=== PATIENT | female | born 1960 | race Caucasian/White ===

== ENCOUNTER 2017-03-24 16:54 | Inpatient (IN) ==
[2017-03-24] MEDS ORDERED: ONDANSETRON 4 MG/2 ML INJECTION IVP PRN (17:06)
[2017-03-24] MEDS ORDERED: BISACODYL 10 MG SUPPOSITORY RECTALLY PRN (17:06)
[2017-03-24] MEDS ORDERED: POLYETHYL GLYCOL 3350 17gm PACKET PO PRN (17:06)
[2017-03-24] MEDS ORDERED: ACETAMINOPHEN 325 MG TABLET PO PRN (17:07)
[2017-03-24] MEDS ORDERED: NS 1,000 ML IV ONE (17:21)
--- OUTSIDE RECORDS SUMMARY | 2017-03-24 17:23 | External Medical Summary | Encounter Summary ---
:1960 Author Organization [facility] Address [address] [place] [address] Phone Care Team Providers Name Role Phone Unavailable Primary Care Provider Unavailable Reason for Visit Reason Comments Medication Refill Encounter Details Date Type Department Care Team Description 03/23/2017 Refill [facility], Cutaneous T-cell [facility] - MD Zuleima lymphoma involving lymph [facility] Exam [address] [facility] nodes of head (HCC) [address] [facility] [place] [address] [place] [address] [phone] Social History Tobacco Use Types Packs/Day Years Used Date Current Every Day Smoker Smokeless Tobacco: Never Used Sex Assigned at Date Recorded Not on file as of this encounter Plan of Treatment Not on fileas of this encounter Visit Diagnoses 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
--- OUTSIDE RECORDS SUMMARY | 2017-03-24 17:23 | External Medical Summary | Continuity of Care Document ---
:1960 Author Organization [facility] Care Team Providers Name Role Phone [employer] Unavailable Unavailable Encounters Location Location Encounter Encounter Reason Attending ADM DC Status Source Details Type Number For Provider Date Date Visit O Active [facility] Family History Value Date Source Advance Directives Order Name Results Value Date Source
--- OUTSIDE RECORDS SUMMARY | 2017-03-24 17:23 | External Medical Summary | Encounter Summary ---
:1960 Author Organization [facility] Address [address] [place] [address] Phone Care Team Providers Name Role Phone Unavailable Primary Care Provider Unavailable Reason for Visit Reason Comments Medication Follow-up Phone message left with Ms. Lozano ( no answer on phone call) , per Dr. Smith, labs results reviewed and are good , advised to stay on same dose of Methotrexate , and to call back for questions. Encounter Details Date Type Department Care Team Description 03/19/2017 Telephone The Lucy Bean, Medication Follow- up [facility] - RN (Phone message left with [facility] Ex[facility] Ms. Lozano ( no answer [address] on phone call) , per Dr. ZAMZAM Smith, [place] [address] results reviewed and are [phone] good , advised to stay on same dose of Methotrexate , and to call back for questions.) Social History Tobacco Use Types Packs/Day Years Used Date Current Every Day Smoker Smokeless Tobacco: Never Used Sex Assigned at Date Recorded Not on file as of this encounter Plan of Treatment Not on fileas of this encounter Visit Diagnoses Not on filein this encounter
--- OUTSIDE RECORDS SUMMARY | 2017-03-24 17:23 | External Medical Summary | Clinical Summary ---
:1960 Author Organization [facility] Address [address] [place] [address] Phone Care Team Providers Name Role Phone Unavailable Primary Care Provider Unavailable Source Comments Some departments are not documenting in the electronic medical record. If you do not see the information that you expected, contact Release of Information in the Health Information Management department at [phone] for further assistance in locating additional records.[facility] Allergies No Known Allergies Current Medications Prescription Sig. Disp. Refills Start Date End Date Status citalopram (CELEXA) 20 Take 20 mg by Active mg tablet mouth daily. atorvastatin (LIPITOR) Take 40 mg by Active 40 mg tablet mouth daily. Sitagliptin-Metformin Take 1 Tab by Active (JANUMET) 50-1,000 mg mouth daily. tab triamcinolone Apply topically Active acetonide (KENALOG) to affected area 0.1 % topical ointment daily as needed. empagliflozin 10 mg Take 1 Tab by Active tab mouth daily. other medication Tanning bed for 99 Dose 9 01/13/2017 Active entire body for 1-2 minutes three times a week clobetasol (TEMOVATE) Apply topically 120 g 11 01/13/2017 Active 0.05 % topical to affected area ointment twice daily. Apply twice a day for 1 week methotrexate sodium Take 4 Tabs by 16 Tab 0 02/26/2017 03/26/2017 Active (RHEUMATREX) 2.5 mg mouth every 7 days tabletIndications: for 28 days. 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 Carbajal ( no answer on phone call) , per Dr. Smith, labs results reviewed and are good , advised to stay on same dose of Methotrexate , and to call back for questions.) 03/12/2017 Telephone Oncology Phillip Flower, Chemotherapy PHARMD 02/26/2017 Office Visit Oncology Luis Cutaneous T-cell MD [place] lymphoma involving lymph nodes of head (HCC) 02/26/2017 Telephone Oncology Jagruti Bo, Chemotherapy Follow up PHARMD 02/26/2017 Documentation Oncology Lydia Barrios 02/26/2017 Documentation Oncology Rochelle Palacios, PHARMD 01/14/2017 Hospital Encounter Luis, Ale specified MD [place] dermatitis 01/13/2017 Office Visit Oncology Tabitha Jurado MD Cutaneous T-cell Luis, lymphoma, unspecified MD [place] body region (HCC) (Primary Dx) 01/13/2017 Office Visit Dermatology Huseyin Dawson MD Cutaneous T-cell lymphoma, unspecified body region (HCC) (Primary Dx);History of blistering sunburn 01/13/2017 Hospital Encounter Ale Smith specified MD [place] dermatitis 12/30/2016 Documentation Oncology Meghann Wolfe, DOLLY from Last 3 Months Family History Medical History Relation Name Comments Asthma Daughter Cancer Father Diabetes Father type 2 Cancer Maternal Grandmother breast Diabetes Mother type 2 Depression Son Relation Name Status Comments Daughter Father Maternal Grandmother Mother Son Social History Tobacco Use Types Packs/Day Years Used Date Current Every Day Smoker Smokeless Tobacco: Never Used Sex Assigned at Date Recorded Not on file Last Filed Vital Signs Vital Sign Reading Time Taken Blood Pressure 128/77 02/26/2017 9:45 AM CDT Pulse 73 02/26/2017 9:45 AM CDT Temperature 37.2 C (98.9 F) 02/26/2017 9:45 AM CDT Respiratory Rate 18 02/26/2017 9:45 AM CDT Oxygen Saturation 97% 02/26/2017 9:45 AM CDT Inhaled Oxygen Concentration - - Weight 112.3 kg (247 lb 9.6 oz) 02/26/2017 9:45 AM CDT Height 167.6 cm (5' 5.98") 02/26/2017 9:45 AM CDT Body Mass Index 39.99 02/26/2017 9:45 AM CDT Plan of Treatment Health Maintenance Due Date Last Done Comments HEPATITIS C SCREENING 1960 PHYSICAL (COMPREHENSIVE) EXAM 1968 PERTUSSIS VACCINE 1972 TETANUS VACCINE 1978 CERVICAL CANCER SCREENING 1991 BREAST CANCER SCREENING 2001 COLORECTAL CANCER SCREENING 2011 INFLUENZA VACCINE 03/26/2017 Results CBC AND DIFF (02/26/2017 8:31 AM)Only the most recent of2 resultswithin the time period is included. Component Value Ref Range White Blood Cells 7.3 4.5 - 11.0 K/UL RBC 4.96 4.0 - 5.0 M/UL Hemoglobin 15.3 (H) 12.0 - 15.0 GM/DL Hematocrit 45.0 36 - 45 % MCV 90.8 80 - 100 FL MCH 30.8 26 - 34 PG MCHC 33.9 32.0 - 36.0 G/DL RDW 14.9 11 - 15 % Platelet Count 193 150 - 400 K/UL MPV 8.0 7 - 11 FL Neutrophils 74 41 - 77 % Lymphocytes 15 (L) 24 - 44 % Monocytes 10 4 - 12 % Eosinophils 1 0 - 5 % Basophils 0 0 - 2 % Absolute Neutrophil Count 5.40 1.8 - 7.0 K/UL Absolute Lymph Count 1.10 1.0 - 4.8 K/UL Absolute Monocyte Count 0.70 0 - 0.80 K/UL Absolute Eosinophil Count 0.10 0 - 0.45 K/UL Absolute Basophil Count 0.00 0 - 0.20 K/UL Specimen Performing Laboratory Blood [facility] [address] [place] [address] COMPREHENSIVE METABOLIC PANEL (02/26/2017 8:31 AM)Only the most recent of2 resultswithin the time period is included. Component Value Ref Range Sodium 137 137 - 147 MMOL/L Potassium 3.9 3.5 - 5.1 MMOL/L Chloride 103 98 - 110 MMOL/L Glucose 224 (H) 70 - 100 MG/DL Blood Urea Nitrogen 14 7 - 25 MG/DL Creatinine 0.63 0.4 - 1.00 MG/DL Calcium 9.4 8.5 - 10.6 MG/DL Total Protein 6.9 6.0 - 8.0 G/DL Total Bilirubin 0.6 0.3 - 1.2 MG/DL Albumin 3.7 3.5 - 5.0 G/DL Alk Phosphatase 74 25 - 110 U/L AST (SGOT) 17 7 - 40 U/L CO2 27 21 - 30 MMOL/L ALT (SGPT) 20 7 - 56 U/L Anion Gap 7 3 - 12 eGFR Non >60 >60 mL/min Comment: The eGFR is not validated for use in drug dosing adjustments.Continue to use estimated creatinine clearance per dosing reference text.Please contact the Clinical Pharmacist for questions. eGFR >60 >60 mL/min Comment: The eGFR is not validated for use in drug dosing adjustments.Continue to use estimated creatinine clearance per dosing reference text.Please contact the Clinical Pharmacist for questions. Specimen Performing Laboratory Blood [facility] [address] [place] [address] PATHOLOGY REPORTS FROM OUTSIDE SCAN (01/15/2017 12:35 PM)Only the most recent of2 resultswithin the time period is included. Narrative Ordered by an unspecified provider. OUTSIDE PATHOLOGY CONSULT (01/14/2017 9:56 AM)Only the most recent of2 resultswithin the time period is included. Component Value Ref Range PATHOLOGY REPORT [facility] [email or web address] Sheri Quinones MD, PhD, Director of Anatomic Pathology Department of Pathology and Laboratory Medicine [address] [place] [address] Surgical Pathology Office:[phone]:[phone] PATHOLOGY CONSULTATION NAME: RAFY CARBAJAL SURG PATH #: [id number] MR #: [id number] ALT ID #: LOCATION: [facility] DATE OF PROCEDURE: 01/14/2017 AGE:56 SEX: F DATE RECEIVED: 01/14/2017 : 1960TIME RECEIVED:09:56 PHYSICIAN: STEFANO SMITH MD DATE OF REPORT: 01/14/2017 COPY TO:DATE OF PRINTIN01/14/2017 ######################################################################## Final Diagnosis: Left upper cutaneous lip ([facility] [id number]; 12.02.2016): -- Atypical nodular lymphoid infiltrate with folliculotropism and follicular mucinosis Left chin ([facility] [id number]; 12.02.2016): -- Atypical CD4+ T-cell nodular infiltrate with folliculotropism and follicular mucinosis Comment: 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 Please correlate clinically. Attestation: By this signature, I attest that I have personally formulated the final interpretation expressed in this report and that the above diagnosis is based upon my examination of the slides and/or other material indicated in this report. +++Electronically Signed Out+++ shayy/01/14/2017 Interpreted by: Deandre Weeks MD, Attending Physician ######################################################################## Material Received: A: Outside Slides x15 [id number], [facility], Department of Dermatology, Dermatopathology Laboratory, [address] [place] [address], Lab [address] [place] [address] Gross Description: A. Received are fifteen (15) outside slides labeled "[id number]", and a properly identified surgical pathology report from [facility], Department of Dermatology, Dermatopathology Laboratory, [address] [place] [address], Lab [address] [place] [address]. ; . paj/01/14/2017 Deandre Weeks MD, Attending Phys If immunohistochemical stains and/or in situ hybridization are cited in this report, the performance characteristics were determined by the Department of Pathology and Laboratory Medicine of the [facility] ([employer]) in compliance with CLIA'88 regulations.Some of these tests rely on the use of "analyte specific reagents" and are subject to specific labeling requirements by the FDA. Known positive and negative control tissues demonstrate appropriate staining.This testing was developed by the Department of Pathology and Laboratory Medicine of the [facility].It has not been cleared or approved by the FDA.The FDA has determined that such clearance or approval is not necessary. Specimen Performing Laboratory [facility] RES[facility] T CELL GENE REARRANGEMENT BLOOD (01/13/2017 3:10 PM) Component Value Ref Range Final Diagnosis,T Cell Peripheral blood, T-cell receptor gene rearrangement analysis: Negative.No clonal T-cell receptor gene rearrangement was detected. Interpretation of this result in the context of other clinical and laboratory information is required. Method summary - T-cell receptor gene rearrangement:A PCR-based assay was performed on extracted DNA using primers that bind the gamma and beta chain genes (see [facility] Interpretive Handbook for method details). Signing Pathologist: Prakash Aldridge M.D., Ph.D. ADDITIONAL INFORMATION This test was developed using an analyte specific reagent. Its performance characteristics were determined by [facility] in a manner consistent with CLIA requirements. This test has not been cleared or approved by the U.S. Food and Drug Administration. [facility] Specimen Performing Laboratory Blood [facility] PERIPHERAL SMEAR (01/13/2017 3:10 PM) Component Value Ref Range Peripheral Smear ERYTHROCYTOSIS WITH NORMAL RED CELL MORPHOLOGY GRANULOCYTOSIS WITHOUT LEFT SHIFT. ABSOLUTE LYMPHOCYTOPENIA. PLATELETS APPEAR NORMAL IN NUMBER AND MORPHOLOGY. NO SEZARY CELLS SEEN Pathologist Signature INTERPRETED BY ROHIT TUCKER M.D. By the PATH SIGNATURE ABOVE, I attest that I have personally formulated the final interpretation expressed in this report and that the above diagnosis is based upon my examination of the slides and/or other material indicated in this report. Specimen Performing Laboratory Blood [facility] [address] [place] [address] LEUKEMIA-LYMPHOMA PANEL BLOOD (01/13/2017 3:10 PM) Component Value Ref Range Leuk/Lymph Interpretation SEE PATHOLOGY REPORT Specimen/LLM BLOOD Specimen Performing Laboratory Blood [facility] [address] [place] [address] URIC ACID (01/13/2017 3:10 PM) Component Value Ref Range Uric Acid 4.2 2.0 - 7.0 MG/DL Specimen Performing Laboratory Blood [facility] [address] [place] [address] LDH-LACTATE DEHYDROGENASE (01/13/2017 3:10 PM) Component Value Ref Range Lactate Dehydrogenase 159 100 - 210 U/L Specimen Performing Laboratory Blood [facility] [address] [place] [address] FLOW CYTOMETRY (01/13/2017 3:09 PM) Component Value Ref Range PATHOLOGY REPORT [facility] [email or web address] Mayda Pineda MD, Director of Clinical Laboratory Breezy Ontiveros MD, Director of Flow Cytometry Laboratory Department of Pathology and Laboratory Medicine [address] [place] [id number] Surgical Pathology Office:[phone]:[phone] FLOW CYTOMETRY REPORT NAME: RAFY CARBAJAL SURG PATH #: [id number] MR #: [id number] SPECIMEN CLASS: LC BILLING #: [id number] ALT ID #:LOCATION: [facility] DATE OF PROCEDURE: 01/13/2017 AGE:56 SEX: F DATE RECEIVED: 01/13/2017 : 1960TIME RECEIVED:16:20 PHYSICIAN: STEFANO SMITH MD DATE OF REPORT: 01/14/2017 COPY TO:DATE OF PRINTIN01/14/2017 Material Received: A: Blood Peripheral History: 56-year-old female with history of cutaneous lymphoma ######################################################################## Final Diagnosis: Blood, flow cytometry:Negative immunophenotypic study Interpretation: Lymphocytes comprise 25% of total events.The majority are T cells with a normal CD4:CD8 ratio and normal antigen expression.B cells are polyclonal with normal antigen expression.There is no immunophenotypic evidence of non-Hodgkin lymphoma. Attestation: By this signature, I attest that I have personally formulated the final interpretation expressed in this report and that the above diagnosis is based upon my examination of the slides and/or other material indicated in this report. +++Electronically Signed Out By+++ danny/01/13/2017 Interpreted by: Breezy Wolff, Attending Physician 01/14/2017 ######################################################################## Lab Data: Flow Cytometry - Lymphoma Panel B Cell Associated Markers (% Positive Cells): CD19=11; CD20=11; CD23=7; Zwingle=7; Lambda=4; Zwingle:Lambda ratio=1.8 T Cell Associated Markers (% Positive Cells): CD2=78; CD3=73; CD4=49; CD5=75; CD7=69; CD8=23 CD4:CD8 ratio=2.2 Miscellaneous Markers (% Positive Cells): CD10=0; CD34=0; CD38=31; NP84=448; CD56=11; FMC7=4; DB151=1 Cell Viability (%): n/a Number of Cells Analyzed:10,000 Total Number of Markers: 23 Summary of Marker Combinations: Zwingle/Lambda/5/10/19/45/38/20; FMC7/23/5/34/200/45/19; 2/7/5/3/4/45/56/8 This test was developed and its performance characteristics determined by the [facility] Flow Cytometry Laboratory.It has not been cleared or approved by the U.S. Food and Drug Administration (FDA).The FDA has determined that such clearance or approval is not necessary. Specimen Performing Laboratory [facility] RESULTS INTRALESIONAL INJECTION, BENIGN (01/13/2017 12:26 PM) Specimen Performing Laboratory IN CLINIC from Last 3 Months
--- OUTSIDE RECORDS SUMMARY | 2017-03-24 17:24 | External Medical Summary | Encounter Summary ---
:1960 Author Organization [facility] Address [address] [place] [address] Phone Care Team Providers Name Role Phone Unavailable Primary Care Provider Unavailable Reason for Visit Reason Comments Heme/Onc Care Encounter Details Date Type Department Care Team Description 02/26/2017 [facility] MD Zuleima lymphoma involving - WW Exam [address] lymph nodes of head [address] [facility] [address] [place] [address] [place], [place] [phone] Social History Tobacco Use Types Packs/Day Years Used Date Current Every Day Smoker Smokeless Tobacco: Never Used Sex Assigned at Date Recorded Not on file as of this encounter Last Filed Vital Signs Vital Sign Reading [...] Mass Index 39.99 02/26/2017 9:45 AM CDT in this encounter Instructions Patient Instructions - Marisela Alejandro - 02/26/2017 9:00 AM CDTWe understand that your time is important and want your visit to be as timely as possible. In orderfor your appointments to occur as closely as possible to the scheduled time, please review the following additional instructions. ? Please arrive 15 minutes prior to your first scheduled appointment time to complete the registration process. ? Bring your photo ID and insurance card with you to check in o If your first appointment is with lab (blood draw) or with your provider, check in on the second floor (Main level). o If your appointment is for lab (blood draw) only, check in on the third floor. in this encounter Progress Notes Zuleima Smith MD - 02/26/2017 9:00 AM CDTFormatting of this note may be different from the original. Date of Service: 02/26/2017 Subjective: Rafy Lozano is a 56 y.o. Female who is here for follow-up of of CTCL. She has had long-standing history of psoriasis and has been on Humira in the past with no major responses in her skin lesions. She did however develop infections with the Humira and has stopped it since then. She is not on any topical treatments are needed treatments for her psoriasis at this time. Meanwhile however for the past 2 months she has noticed worsening new rash on her face which is different from her psoriatic rash. And the rash on the face were more nodular. 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 She notes mild pain and itching on her facial lesions. She has significant itching in her skin lesions all over the body from psoriasis. She has noticed initial improvement with clobetasol and tanning beds. She had a lot of family issues and has not been able to go to tanning bed for the past 3 weeks and has not been able to be compliant with clobetasol. Since then she had noticed mild worsening of her skin lesions again. Overall her skin has been is with no changes since the last clinic visit. She is very frustrated with her skin lesions and has significant compromise of quality of life. Sheis requesting treatment for CTCL and also for possible psoriasis. She denies fevers, chills and night sweats. She denies appetite and weight changes. Reason for Visit: Heme/Onc Care History of Present Illness Patient is a 56 year old female with PMH of Depression, Psoriasis and Diabetes.. Patient establishedcare with Dr. Gaurav Mart in October 2016 due to new onset of rash. Dr. 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 Dr. Mart referred patient to Dr. Brendan Rodas and Dr. Smith for treatment recommendations. Appt 01/04/[address] Smith and Dr. Rodas. 08/07/15 Lab WBC 7.4, RBC 5.65, HGB 16.4, HCT 50.5, BUN 14, Creatinine 0.7 08/14/15 B cell Gene rearrangment by PCR lip biopsy Negative 08/14/15 T cell Gene rearrangement by PCR- lip biopsy Negative 08/14/15 Left lip biopsy Left Lip biopsy: reactive, localized lymphoid hyper plasia. PCR shows no B or T cell clonality. 09/03/16 Left Lip and Nasal fold biopsy Left Lip and nasal fold biopsy: Traumatized skin with serum crust and dermal mixed dense inflammation. No evidence of malignancy 11/19/16 Lab WBC 6.8, RBC 5.01, HGB 14.9, HCT 46.4, PLT 227, BUN 15, Creatinine 0.72 11/19/16 Lip and chin skin biopsy Left upper cutaneous lip: Atypical dermal lymphocytic infiltrate. Left Chin: Atypical dermal lymphocytic infiltrate with follicular accentuation and focal epidermal lymphocyte exocytosis. Comment: T cell gene rearrangement was performed and was positive for a clonal t cell receptor gammagene rearrangement. 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 11/20/16 T cell Gene rearrangement Clonal T cell receptor gamma gene rearrangement was detected. 12/03/16 Abdominal skin biopsy Left Abdomen skin biopsy: Psoriasiform dermatitis. Right Abdominal skin biopsy: Psoriasiform dermatitis. Location of Pathology: MAILED/[facility] and Patient notified outside pathology slides will be obtained for review by [facility] pathologist and a facility and professional fee will be billed to their insurance. 2017 skin biopsies ordered Review of Systems Constitutional: Positive for fatigue. Negative for activity change, appetite change, chills, diaphoresis, fever and unexpected weight change. HENT: Negative for nosebleeds, postnasal drip, trouble swallowing and voice change. Eyes: Negative. Respiratory: Negative for cough and shortness of breath. Cardiovascular: Negative for chest pain, palpitations and leg swelling. Gastrointestinal: Negative for abdominal pain, constipation, diarrhea, nausea and vomiting. Endocrine: Negative. Genitourinary: Negative for hematuria and urgency. Musculoskeletal: Negative for back pain, gait problem and neck pain. Skin: Positive for color change and rash. Negative for pallor. Allergic/Immunologic: Negative. Neurological: Negative for facial asymmetry, speech difficulty and light- headedness. Hematological: Negative for adenopathy. Does not bruise/bleed easily. Psychiatric/Behavioral: Positive for decreased concentration and sleep disturbance. The patient is nervous/anxious. Past Medical History: Diagnosis Date DM (diabetes mellitus) (HCC) type 2 No past surgical history on file. Family History Problem Relation Age of Onset Diabetes Mother type 2 Cancer Father Diabetes Father type 2 Depression Son Asthma Daughter Cancer Maternal Grandmother breast Social History Social History Marital status: Spouse name: N/A Number of children: N/A Years of education: N/A Occupational History Not on file. Social History Main Topics Smoking status: Current Every Day Smoker Smokeless tobacco: Never Used Alcohol use Not on file Drug use: Not on file Sexual activity: Not on file Other Topics Concern Not on file Social History Narrative Objective: atorvastatin (LIPITOR) 40 mg tablet Take 40 mg by mouth daily. citalopram (CELEXA) 20 mg tablet Take 20 mg by mouth daily. clobetasol (TEMOVATE) 0.05 % topical ointment Apply topically to affected area twice daily. Apply twice a day for 1 week empagliflozin 10 mg tab Take 1 Tab by mouth daily. folic acid (FOLVITE) 1 mg tablet Take 1 Tab by mouth daily. methotrexate sodium (RHEUMATREX) 2.5 mg tablet Take 4 Tabs by mouth every 7 days for 28 days. multivit [id number] (HAIR, SKIN AND NAILS ADVANCED) 3.3 mg iron- 25 mcg tab Take 1 Tab by mouth daily. other medication Tanning bed for entire body for 1-2 minutes three times a week Sitagliptin-Metformin (JANUMET) 50-1,000 mg tab Take 1 Tab by mouth daily. triamcinolone acetonide (KENALOG) 0.1 % topical ointment Apply topically to affected area dailyas needed. Vitals: 02/26/17 0945 BP: 128/77 Pulse: 73 Resp: 18 Temp: 37.2 C (98.9 F) TempSrc: Oral SpO2: 97% Weight: 112.3 kg (247 lb 9.6 oz) Height: 167.6 cm (65.98") Body mass index is 39.99 kg/(m^2). Pain Score: Zero Pain Addressed: N/A Patient Evaluated for a Clinical Trial: No treatment clinical trial available for this patient. Eastern Cooperative Oncology Group performance status is 0, Fully active, able to carry on all pre-disease performance without restriction.. Physical Exam Constitutional: She is oriented to person, place, and time. She appears well- developed and well-nourished. HENT: Head: Normocephalic and atraumatic. Nose: Nose normal. Mouth/Throat: Oropharynx is clear and moist. No oropharyngeal exudate. Eyes: EOM are normal. Pupils are equal, round, and reactive to light. Neck: Normal range of motion. Neck supple. No thyromegaly present. Cardiovascular: Normal rate, regular rhythm, normal heart sounds and intact distal pulses. Exam reveals no gallop and no friction rub. No murmur heard. Pulmonary/Chest: Effort normal and breath sounds normal. Abdominal: Soft. Bowel sounds are normal. She exhibits no mass (no hepatosplenomegaly). There is no tenderness. Musculoskeletal: Normal range of motion. Lymphadenopathy: She has no cervical adenopathy. Neurological: She is alert and oriented to person, place, and time. Skin: Skin is warm and dry. Significant involvement of skin with psoriatic lesions. Has nodular lesions on the face with biopsy-proven CTCL. No major changes in her skin lesions since the last clinic visit. Psychiatric: She has a normal mood and affect. Assessment and Plan: Ms. Lozano is a 56-year-old female with new diagnosis of CTCL. She does not have any palpable lymphadenopathy and examined does not have any B symptoms. Her flow cytometry is negative for involvement of lymphoma on 01/13/2017. She peripheral smear is negative for Sezary cells. Reviewed her past biopsies of lip and facial lesions and consistent with CTCL. She has mild erythrocytosis and leukocytosis on the CBC. CBC is normal with normal uric acid and LDH. I discussed with her at length regarding the course of CTCL CTCL is an indolent disease and may stay indolent and confined to skin for 10-12 years for a median. However there is always risk of transformation with systemic involvement and we would need to do oral or systemic chemotherapy at that time. I discussed multiple options that are available for CTCL at this time including oral weekly methotrexate, vorinostat, Targretin, extracorporeal photopheresis in addition to the topical treatment. Patient is interested in alternative treatment options but she lives far away and would prefer something that she could take at home and monitor closely at home. Patient is interested in methotrexate since it helps with both CTCL and psoriasis. She has tried clobetasol and tanning bed with initial improvement but has not been compliant with the treatment due to family issues. I discussed weekly methotrexate with daily folic acid as an optionto control both CTCL and psoriasis. Patient is interested and would like to try it. CTCL: Start 10 mg p.o. weekly methotrexate. Folic acid 1 mg p.o. daily and continue it as long as she is on methotrexate. Check CBC and CMP in every 2 Weeks Close to home with PCP. Provided her with the orders. If her labs continues to be stable, we will send a repeat prescription for 1 more month of methotrexate prior to her next clinic visit. We will see her back in clinic in 2 months with repeat labs and will repeat CD4 CD8 ratio and peripheral smear at that time in addition to CBC and CMP. We will follow-up with her in 2 months and depending on her response to the treatments with every 2weeks CBC and CMP intolerance and will see her back in clinic in 2 weeks. 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
--- OUTSIDE RECORDS SUMMARY | 2017-03-24 17:24 | External Medical Summary | Encounter Summary ---
:1960 Author Organization [facility] Address [address] [place] [address] Phone Care Team Providers Name Role Phone Unavailable Primary Care Provider Unavailable Encounter Details Date Type Department Care Team Description 01/14/2017 Hospital Encounter [facility], Other specified [address] MD Zuleima dermatitis [place], [place] [address] [address] [place], [place] [id number] Social History Tobacco Use Types Packs/Day Years Used Date Never Assessed Sex Assigned at Date Recorded Not on file as of this encounter Medications at Time of Discharge Medication Sig. Disp. Refills Start Date End Date atorvastatin (LIPITOR) 40 Take 40 mg by mouth mg tablet daily. citalopram (CELEXA) 20 mg Take 20 mg by mouth tablet daily. clobetasol (TEMOVATE) 0.05 Apply topically to 120 g 11 01/13/2017 % topical ointment affected area twice daily. Apply twice a day for 1 week empagliflozin 10 mg tab Take 1 Tab by mouth daily. other medication Tanning bed for entire 99 Dose 9 01/13/2017 body for 1-2 minutes three times a week Sitagliptin-Metformin Take 1 Tab by mouth (JANUMET) 50-1,000 mg tab daily. triamcinolone acetonide Apply topically to (KENALOG) 0.1 % topical affected area daily as ointment needed. as of this encounter Plan of Treatment Not on fileas of this encounter Visit Diagnoses Not on filein this encounter Admitting Diagnoses Diagnosis Other specified dermatitis in this encounter
--- OUTSIDE RECORDS SUMMARY | 2017-03-24 17:24 | External Medical Summary | Encounter Summary ---
:1960 Author Organization [facility] Address [address] [facility] [address] [place] [address] Phone Care Team Providers Name Role Phone Unavailable Primary Care Provider Unavailable Reason for Visit Reason Comments Chemotherapy Follow up Encounter Details Date Type Department Care Team Description 02/26/2017 Telephone [facility], Chemotherapy Follow up [facility] [address] [place] [phone] Social History Tobacco Use Types Packs/Day Years Used Date Current Every Day Smoker Sex Assigned at Date Recorded Not on file as of this encounter Plan of Treatment Not on fileas of this encounter Visit Diagnoses Not on filein this encounter
--- OUTSIDE RECORDS SUMMARY | 2017-03-24 17:24 | External Medical Summary | Encounter Summary ---
:1960 Author Organization [facility] Address [address] [place] [address] Phone Care Team Providers Name Role Phone Unavailable Primary Care Provider Unavailable Encounter Details Date Type Department Care Team Description 02/26/2017 Documentation [facility] Rochelle Palacios [facility] - [facility] Exam [address] [place] [address] Social History Tobacco Use Types Packs/Day Years Used Date Current Every Day Smoker Sex Assigned at Date Recorded Not on file as of this encounter Progress Notes Rochelle Palacios PHARMD - 02/26/2017 10:51 AM CDTFormatting of this note may be different from the original. Initial Assessment: Oral Chemotherapy aRfy Lozano is a 56 y.o. 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 Indication/Regimen Methotrexate (RHEUMATREX) is being used appropriately for treatment of CTCL. The dosing regimen of 10mg (four x 2.5 mg tablets) by mouth every 7 days for 28 days is appropriate for Rafy Lozano. It is planned to continue until progression or unacceptable toxicity. Patientwas also provided with a prescription for folic acid 1mg to be taken by mouth once daily to minimizetreatment related adverse effects. Patient History Cancer Diagnosis: No matching staging information was found for the patient. Height, Weight, BSA Estimated body surface area is 2.29 meters squared as calculated from the following: Height as of an earlier encounter on 02/26/17: 167.6 cm (65.98"). Weight as of an earlier encounter on 02/26/17: 112.3 kg (247 lb 9.6 oz). No Known Allergies Baseline Labs: CBC w/Diff Lab Results Component Value Date/Time WBC 7.3 02/26/2017 08:31 AM RBC 4.96 02/26/2017 08:31 AM HGB 15.3 (H) 02/26/2017 08:31 AM HCT 45.0 02/26/2017 08:31 AM MCV 90.8 02/26/2017 08:31 AM MCH 30.8 02/26/2017 08:31 AM MCHC 33.9 02/26/2017 08:31 AM RDW 14.9 02/26/2017 08:31 AM PLTCT 193 02/26/2017 08:31 AM MPV 8.0 02/26/2017 08:31 AM Lab Results Component Value Date/Time NEUT 74 02/26/2017 08:31 AM ANC 5.40 02/26/2017 08:31 AM LYMA 15 (L) 02/26/2017 08:31 AM ALC 1.10 02/26/2017 08:31 AM LILLIAN 10 02/26/2017 08:31 AM AMC 0.70 02/26/2017 08:31 AM EOSA 1 02/26/2017 08:31 AM AEC 0.10 02/26/2017 08:31 AM BASA 0 02/26/2017 08:31 AM ABC 0.00 02/26/2017 08:31 AM Comprehensive Metabolic Profile Lab Results Component Value Date/Time NA 137 02/26/2017 08:31 AM K 3.9 02/26/2017 08:31 AM CL 103 02/26/2017 08:31 AM CO2 27 02/26/2017 08:31 AM GAP 7 02/26/2017 08:31 AM BUN 14 02/26/2017 08:31 AM CR 0.63 02/26/2017 08:31 AM GLU 224 (H) 02/26/2017 08:31 AM Lab Results Component Value Date/Time CA 9.4 02/26/2017 08:31 AM ALBUMIN 3.7 02/26/2017 08:31 AM TOTPROT 6.9 02/26/2017 08:31 AM ALKPHOS 74 02/26/2017 08:31 AM AST 17 02/26/2017 08:31 AM ALT 20 02/26/2017 08:31 AM TOTBILI 0.6 02/26/2017 08:31 AM GFR >60 02/26/2017 08:31 AM GFRAA >60 02/26/2017 08:31 AM CREATININE: 0.63 MG/DL (02/26/17 0831) Estimated creatinine clearance: 115.4 mL/min status The patients status was assessed. As patient is a female of child- bearing potential, she will be instructed regarding effective contraception during and after treatment, and that in the event that she becomes she should contact her physician immediately. Medication Reconciliation Prior to Admission medications Medication Sig Start Date End Date Taking? Authorizing Provider atorvastatin (LIPITOR) 40 mg tablet Take 40 mg by mouth daily. HISTORICAL PROVIDER citalopram (CELEXA) 20 mg tablet Take 20 mg by mouth daily. HISTORICAL PROVIDER clobetasol (TEMOVATE) 0.05 % topical ointment Apply topically to affected area twice daily. Apply twice a day for 1 week 01/13/17 Brendan Rodas MD empagliflozin 10 mg tab Take by mouth daily. HISTORICAL PROVIDER folic acid (FOLVITE) 1 mg tablet Take 1 Tab by mouth daily. 02/26/17 Zuleima Smith MD methotrexate sodium (RHEUMATREX) 2.5 mg tablet Take 4 Tabs by mouth every 7 days for 28 days. Zuleima Smith MD other medication Tanning bed for entire body for 1-2 minutes three times a week 01/13/17 Brendan Rodas MD Sitagliptin-Metformin (JANUMET) 50-1,000 mg tab Take 1 Tab by mouth daily. HISTORICAL PROVIDER triamcinolone acetonide (KENALOG) 0.1 % topical ointment Apply topically to affected area twice daily. HISTORICAL PROVIDER Medication reconciliation is based on the patients most recent medication list in the electronic medical record (EMR) including herbal products and OTC medications. The patient's medication list will be updated during patient education, after speaking with the patient and prior to dispensing the medication. Drug-drug interactions (DDIs) DDIs were evaluated: No significant drug-drug interactions were identified. Patient will be advisedto avoid NSAIDs, proton pump inhibitors while on therapy. Follow up plan: will discuss with Patient and determine if alternative therapy is appropriate. Drug-Food Interactions Drug-food interactions were evaluated: No significant drug-food interactions were identified. Contraindications Contraindications to the use of methotrexate were reviewed and no contraindications were identified for Rafy Lozano. Safety Precautions Safety precautions for this medication have been reviewed. No concerns have been identified. Risk Evaluation and Mitigation Strategy (REMS) Assessment No REMS is required for this medication. Initial therapy assessment has been completed and the patient will be contacted to complete education on their regimen. Rochelle Palacios, CHERIED Clinical Pharmacist 02/26/2017in this encounter Plan of Treatment Not on fileas of this encounter Visit Diagnoses Not on filein this encounter
--- OUTSIDE RECORDS SUMMARY | 2017-03-24 17:24 | External Medical Summary | Encounter Summary ---
:[address] [facility] Address [address] [facility] [address] [place] [address] Phone Care Team Providers Name Role Phone Unavailable Primary Care Provider Unavailable Reason for Visit Reason Comments Chemotherapy Encounter Details Date Type Department Care Team Description 03/12/2017 Telephone [facility] Phillip Flower, PHARMD Chemotherapy [facility] - Pharmacy [address] [place] [phone] Social History Tobacco Use Types Packs/Day Years Used Date Current Every Day Smoker Smokeless Tobacco: Never Used Sex Assigned at Date Recorded Not on file as of this encounter Plan of Treatment Not on fileas of this encounter Visit Diagnoses Not on filein this encounter
--- OUTSIDE RECORDS SUMMARY | 2017-03-24 17:25 | External Medical Summary | Encounter Summary ---
:1960 Author Organization [facility] Address [address] [place] [address] Phone Care Team Providers Name Role Phone Unavailable Primary Care Provider Unavailable Encounter Details Date Type Department Care Team Description 12/30/2016 Documentation [facility] Meghann Wolfe RN Cancer Center - BMT Exam [address] [facility] [address] [place] [phone] Social History Tobacco Use Types Packs/Day Years Used Date Never Assessed Sex Assigned at Date Recorded Not on file as of this encounter Progress Notes Meghann Wolfe RN - 12/30/2016 11:25 AM CDTFormatting of this note may be different from the original. Heme/BMT Navigation Intake Assessment Document Patient Name: Rafy Lozano : 1960 Date of Appt 01/13/[address] Dr[address] Smith [id number] REFERRING PHYSICIAN: Dr. Gaurav Mart [phone] INSURANCE: Payor: [employer] / Plan: [employer] HMO/SELECT/CHOICE/POS / Product Type: * No Product type* / Note: This is the primary coverage, but no account was found for this location or the patient's primarylocation. Patient is a 56 year old female [...] skin biopsy: Psoriasiform dermatitis. Location of Pathology: MAILED/[facility]OT WORKER and Patient notified outside pathology slides will be obtained for review by [facility] pathologist and a facility and professional fee will be billed to their insurance.2016 skin biopsies ordered 07/11 NEEDS Assessment: Genetic Counseling: Not Applicable Nutrition: Patient provided information on all available services Social Work/Financial: Patient provided information on available services Spiritual & Emotional: Patient provided information on available services Physical: Patient provided information on available services Communication: Patient provided information on available services Oncofertility - Females age 40 and under; Males age 50 and under : Not applicable in this encounter Plan of Treatment Not on fileas of this encounter Visit Diagnoses Not on filein this encounter
--- OUTSIDE RECORDS SUMMARY | 2017-03-24 17:25 | External Medical Summary | Encounter Summary ---
:1960 Author Organization [facility] Address [address] [place] [address] Phone Care Team Providers Name Role Phone Unavailable Primary Care Provider Unavailable Reason for Visit Reason Comments Heme/Onc Care Consult, Test & Treat (Routine) Status Reason Specialty Diagnoses / Referred By Referred To Procedures Contact Contact Authorized Hematology / Diagnoses Cutaneous T-cell lymphoma, unspecified lymph nodes of head, face, and neck (HCC ) Self, Referral Luis Oncology Procedures CT OFFICE/OUTPT VISIT,ELISA STEPHENS MD-KAT PATIENT [address] [facility] [id number] [place] [id number] Encounter Details Date Type Department Care Team Description 01/13/2017 [facility] [address] [facility] [address] [place], [place] [id number] Cutaneous T-cell [facility] Zuleima Smith MD [address] [place], [place] [phone] lymphoma, unspecified - WW Exam body region (HCC) [address] [facility] (Primary Dx) [place], [place] [phone] Social History Tobacco Use Types Packs/Day Years Used Date Current Every Day Smoker Sex Assigned at Date Recorded Not on file as of this encounter Last Filed Vital Signs Vital Sign Reading Time Taken Blood Pressure 138/84 01/13/2017 2:04 PM CDT Pulse 86 01/13/2017 2:04 PM CDT Temperature 36.8 C (98.3 F) 01/13/2017 2:04 PM CDT Respiratory Rate 16 01/13/2017 2:04 PM CDT Oxygen Saturation 96% 01/13/2017 2:04 PM CDT Inhaled Oxygen Concentration - - Weight 109.6 kg (241 lb 9.6 oz) 01/13/2017 2:04 PM CDT Height 167.6 cm (5' 5.98") 01/13/2017 2:04 PM CDT Body Mass Index 39.01 01/13/2017 2:04 PM CDT in this encounter Instructions Patient Instructions - Marisela Alejandro - 01/13/2017 2:59 PM CDTWe understand that your time is important [...] encounter Progress Notes Zuleima Smith MD - 01/27/2017 7:12 AM CDTFormatting of this note may be different from the original. Date of Service: 01/13/2017 Subjective: Rafy Lozano is a 56 y.o. 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 She has had long-standing history of psoriasis and has been on Humira in the past withno major responses in her skin lesions. She did however develop infections with the Humira and has stopped it since then. She is not on any topical treatments are needed treatments for her psoriasis at this time. Meanwhile however for the past 2 months she has noticed worsening new rash on her facewhich is different from her psoriatic rash. And the rash on the face were more nodular. 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 She was referred to us for second opinion and is seeing Dr. Rodas and me on the same day. She notes mild pain and itching on her facial lesions. She has significant itching in her skin lesions all over the body from psoriasis. She denies fevers, chills and night [...] skin biopsy: Psoriasiform dermatitis. Location of Pathology: [facility] and Patient notified outside pathology slides will be obtained for review by [facility] pathologist and a facility and professional fee will be billed to their insurance. 2017 skin biopsies ordered Review of Systems Constitutional: Negative for fever, chills, diaphoresis, activity change, appetite change, fatigue and unexpected weight change. HENT: Negative for nosebleeds, postnasal drip, trouble swallowing and voice change. Eyes: Negative. Respiratory: Negative for cough and shortness of breath. Cardiovascular: Negative for chest pain, palpitations and leg swelling. Gastrointestinal: Negative for nausea, vomiting, abdominal pain, diarrhea and constipation. Endocrine: Negative. Genitourinary: Negative for urgency and hematuria. Musculoskeletal: Negative for back pain, gait problem and neck pain. Skin: Positive for color change and rash. Negative for pallor. Allergic/Immunologic: Negative. Neurological: Negative for facial asymmetry, speech difficulty and light- headedness. Hematological: Negative for adenopathy. Does not bruise/bleed easily. Psychiatric/Behavioral: The patient is nervous/anxious. Past Medical History Diagnosis Date DM (diabetes mellitus) (HCC) type 2 History reviewed. No pertinent past surgical history. Family History Problem Relation Age of Onset Diabetes Mother type 2 Cancer Father Diabetes Father type 2 Depression Son Asthma Daughter Cancer Maternal Grandmother breast Social History Social History Marital Status: Spouse Name: N/A Number of Children: N/A Years of Education: N/A Occupational History Not on file. Social History Main Topics Smoking status: Never Smoker Smokeless tobacco: Not on file Alcohol Use: Not on file Drug Use: Not on file Sexual Activity: Not on file Other Topics Concern Not on file Social History Narrative Objective: atorvastatin (LIPITOR) 40 mg tablet Take 40 mg by mouth daily. citalopram (CELEXA) 20 mg tablet Take 20 mg by mouth daily. clobetasol (TEMOVATE) 0.05 % topical ointment Apply topically to affected area twice daily. Apply twice a day for 1 week empagliflozin 10 mg tab Take by mouth daily. other medication Tanning bed for entire body for 1-2 minutes three times a week Sitagliptin-Metformin (JANUMET) 50-1,000 mg tab Take 1 Tab by mouth daily. triamcinolone acetonide (KENALOG) 0.1 % topical ointment Apply topically to affected area twicedaily. Filed Vitals: 01/13/17 1404 BP: 138/84 Pulse: 86 Temp: 36.8 C (98.3 F) TempSrc: Oral Resp: 16 Height: 167.6 cm (65.98") Weight: 109.589 kg (241 lb 9.6 oz) SpO2: 96% Body mass index is 39.01 kg/(m^2). Pain Score: Zero Pain Addressed: N/A [...] lesions on the face with biopsy-proven CTCL. Psychiatric: She has a normal mood and [...] her at length regarding the course of CTCL. CTCL is an indolent disease and may [...] at home and monitor closely at home. She is willing to try oral oral treatment options if necessary. Dr. Rodas has recommended topical treatments which she is planning on starting soon. I discussed weekly methotrexate with daily folic acid as an option to control both CTCL and psoriasis. Patient is interested and would like to think about it. I will discuss the option with Dr. Rodas and will plan on proceeding pending her response to topical treatments. We will follow-up with her in 2 weeks and depending on her response to the treatments we will order methotrexate and plan on seeing her in about 6 weeks for follow-up. in this encounter Plan of Treatment Not on fileas of this encounter Results CBC AND DIFF (02/26/2017 8:31 AM) Component Value Ref Range White Blood Cells [...] - 0.20 K/UL Specimen Performing Laboratory Blood [facility] [address] [place] [address] COMPREHENSIVE METABOLIC PANEL (02/26/2017 8:31 AM) Component Value Ref Range Sodium 137 137 [...] Pharmacist for questions. Specimen Performing Laboratory Blood [facility] [address] [place] [address] T CELL GENE REARRANGEMENT BLOOD (01/13/2017 3:10 [...] the gamma and beta chain genes (see [facility] Interpretive Handbook for method details). Signing Pathologist: Prakash Aldridge M.D., Ph.D. ADDITIONAL INFORMATION This test was developed using an analyte specific reagent. Its performance characteristics were determined by [facility] in a manner consistent with CLIA requirements. This test has not been cleared or approved by the U.S. Food and Drug Administration. [facility] Specimen Performing Laboratory Blood [facility] PERIPHERAL [...] in this report. Specimen Performing Laboratory Blood [facility] [address] [place] [address] LEUKEMIA-LYMPHOMA PANEL BLOOD (01/13/2017 3:10 PM) Component Value Ref Range Leuk/Lymph Interpretation SEE PATHOLOGY REPORT Specimen/LLM BLOOD Specimen Performing Laboratory Blood [facility] [address] [place] [address] CBC AND DIFF (01/13/2017 3:10 PM) Component Value Ref Range White Blood Cells 10.3 4.5 - 11.0 K/UL RBC 5.48 (H) 4.0 - 5.0 M/UL Hemoglobin 16.4 (H) 12.0 - 15.0 GM/DL Hematocrit 49.5 (H) 36 - 45 % MCV 90.4 80 - 100 FL MCH 29.9 26 - 34 PG MCHC 33.0 32.0 - 36.0 G/DL RDW 14.6 11 - 15 % Platelet Count 239 150 - 400 K/UL MPV 8.4 7 - 11 FL Neutrophils 88 (H) 41 - 77 % Lymphocytes 8 (L) 24 - 44 % Monocytes 3 (L) 4 - 12 % Eosinophils 0 0 - 5 % Basophils 1 0 - 2 % Absolute Neutrophil Count 9.00 (H) 1.8 - 7.0 K/UL Absolute Lymph Count 0.90 (L) 1.0 - 4.8 K/UL Absolute Monocyte Count 0.30 0 - 0.80 K/UL Absolute Eosinophil Count 0.00 0 - 0.45 K/UL Absolute Basophil Count 0.10 0 - 0.20 K/UL Specimen Performing Laboratory Blood [facility] [address] [place] [address] COMPREHENSIVE METABOLIC PANEL (01/13/2017 3:10 PM) Component Value Ref Range Sodium 135 (L) 137 - 147 MMOL/L Potassium 4.3 3.5 - 5.1 MMOL/L Chloride 102 98 - 110 MMOL/L Glucose 158 (H) 70 - 100 MG/DL Blood Urea Nitrogen 12 7 - 25 MG/DL Creatinine 0.58 0.4 - 1.00 MG/DL Calcium 9.8 8.5 - 10.6 MG/DL Total Protein 7.6 6.0 - 8.0 G/DL Total Bilirubin 0.4 0.3 - 1.2 MG/DL Albumin 4.1 3.5 - 5.0 G/DL Alk Phosphatase 80 25 - 110 U/L AST (SGOT) 17 7 - 40 U/L CO2 25 21 - 30 MMOL/L ALT (SGPT) 19 7 - 56 U/L Anion Gap 8 3 - 12 eGFR Non >60 >60 [...] Pharmacist for questions. Specimen Performing Laboratory Blood [facility] [address] [place] [address] LDH-LACTATE DEHYDROGENASE (01/13/2017 3:10 PM) Component Value Ref Range Lactate Dehydrogenase 159 100 - 210 U/L Specimen Performing Laboratory Blood [facility] [address] [place] [address] URIC ACID (01/13/2017 3:10 PM) Component Value Ref Range Uric Acid 4.2 2.0 - 7.0 MG/DL Specimen Performing Laboratory Blood [facility] [address] [place] [address] in this encounter Visit Diagnoses Diagnosis Cutaneous T-cell lymphoma, unspecified body region - Primary in this encounter
--- OUTSIDE RECORDS SUMMARY | 2017-03-24 17:25 | External Medical Summary | Encounter Summary ---
:1960 Author Organization [facility] Address [address] [place] [address] Phone Care Team Providers Name Role Phone Unavailable Primary Care Provider Unavailable Encounter Details Date Type Department Care Team Description 01/13/2017 Hospital Encounter [facility], Other specified [address] Stefano MD [place], [place] [address] [address] [place], [place] [phone] Social History Tobacco Use Types Packs/Day Years [...] Not on fileas of this encounter Results PATHOLOGY REPORTS FROM OUTSIDE SCAN (01/15/2017 12:35 PM) Narrative Ordered by an unspecified provider. PATHOLOGY REPORTS FROM OUTSIDE SCAN (01/15/2017 12:35 PM) Narrative Ordered by an unspecified provider. OUTSIDE PATHOLOGY CONSULT (01/14/2017 9:56 AM) Component Value Ref Range PATHOLOGY REPORT [facility] [email or web address] Sheri Quinones MD, PhD, Director of Anatomic Pathology Department of Pathology and Laboratory Medicine [address] [place] [phone] Surgical Pathology Office:[phone]:[phone] PATHOLOGY CONSULTATION NAME: RAFY CARBAJAL SURG PATH #: [id number] MR #: [id number] ALT ID #: LOCATION: [facility] DATE OF PROCEDURE: 01/14/2017 AGE:56 SEX: F DATE RECEIVED: 01/14/2017 : 1960TIME RECEIVED:09:56 PHYSICIAN: STEFANO ASHTON MD DATE OF REPORT: 01/14/2017 COPY TO:DATE OF PRINTIN01/14/2017 ######################################################################## Final Diagnosis: Left upper cutaneous lip ([facility] Care [id number]; 12.02.2016): -- Atypical nodular lymphoid infiltrate with folliculotropism and follicular mucinosis Left chin ([facility] Care [id number]; 12.02.2016): -- Atypical CD4+ T-cell nodular infiltrate [...] indicated in this report. +++Electronically Signed Out+++ juanis/01/14/2017 Interpreted by: Deandre Weeks MD, Attending Physician ######################################################################## Material Received: A: Outside Slides x15 [id number], [facility], Department of Dermatology, Dermatopathology Laboratory, [address] [place] [address], Lab [address] [place] [address] Gross Description: A. Received are fifteen (15) outside slides labeled "[id number]", and a properly identified surgical pathology report from [facility], Department of Dermatology, Dermatopathology Laboratory, [address] [place] [address], Lab , [place] [address]. ; . paj/01/14/2017 Deandre Weeks MD, Attending Phys If immunohistochemical stains and/or in situ hybridization are cited in this report, the performance characteristics were determined by the Department of Pathology and Laboratory Medicine of the [facility] ([employer]) in compliance with CLIA'88 regulations.Some of these tests rely on the use of "analyte specific reagents" and are subject to specific labeling requirements by the FDA. Known positive and negative control tissues demonstrate appropriate staining.This testing was developed by the Department of Pathology and Laboratory Medicine of the [facility].It has not been cleared or approved by the FDA.The FDA has determined that such clearance or approval is not necessary. Specimen Performing Laboratory [facility] RESULTS OUTSIDE PATHOLOGY CONSULT (01/13/2017 12:32 PM) Component Value Ref Range PATHOLOGY REPORT [facility] [email or web address] Sheri Quinones MD, PhD, Director of Anatomic Pathology Department of Pathology and Laboratory Medicine [address] [place] [phone] Surgical Pathology Office:[phone]:[phone] PATHOLOGY CONSULTATION NAME: RAFY CARBAJAL SURG PATH #: [id number] MR #: [id number] ALT ID #: LOCATION: [facility] DATE OF PROCEDURE: 01/13/2017 AGE:56 SEX: F DATE RECEIVED: 01/13/2017 : 1960TIME RECEIVED:12:32 PHYSICIAN: STEFANO ASHTON MD DATE OF REPORT: 01/14/2017 COPY TO:DATE OF PRINTIN01/14/2017 ######################################################################## Final Diagnosis: Left abdomen ([facility] [id number]; 12.03.2016): -- 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 Comment: The pathology findings are indeterminate in isolation, but demonstrate changes which could be seen in a cutaneous T-cell lymphoma such as mycosis fungoides if supported by the clinical context. Attestation: By this signature, I attest that I have personally formulated the final interpretation expressed in this report and that the above diagnosis is based upon my examination of the slides and/or other material indicated in this report. +++Electronically Signed Out+++ pa01/13/2017 Interpreted by: Deandre Weeks MD, Attending Physician ######################################################################## Material Received: A: Outside Slides x10 [id number], [facility], Department of Pathology, [address] [place] [address] Gross Description: A. Received are ten (10) outside slides labeled "[id number]", and a properly identified surgical pathology report from [facility], Department of Pathology, [address] [place] [address]. ; . paj01/13/2017 Deandre Weeks MD, Attending Phys If immunohistochemical stains and/or in situ hybridization are cited in this report, the performance characteristics were determined by the Department of Pathology and Laboratory Medicine of the [facility] ([employer]) in compliance with CLIA'88 regulations.Some of these tests rely on the use of "analyte specific reagents" and are subject to specific labeling requirements by the FDA. Known positive and negative control tissues demonstrate appropriate staining.This testing was developed by the Department of Pathology and Laboratory Medicine of the [facility].It has not been cleared or approved by the FDA.The FDA has determined that such clearance or approval is not necessary. Specimen Performing Laboratory [facility] RESULTS in this encounter Visit Diagnoses Not on filein this encounter Admitting Diagnoses Diagnosis Other specified dermatitis in this encounter
[2017-03-24 17:47] VITALS: BMI 39.6
--- NOTE | 2017-03-24 18:10 | History & Physical Report ---
<Robyn Dumont V - Last Filed: 03/24/17 18:06> History of Present Illness Date: 03/24/17 Chief complaint: Left lower ext cellulitis HPI: Rafy is a pleasant 56-year-old female who awoke feeling normal this morning. She went to get in the shower several hours later and felt some burning in the left lower extremity. Once out of the shower she noticed increased erythema to the left lower leg. As the day went on, she developed nausea and dizziness. Due to these symptoms, she presented to her primary care provider, Dr. Boone for further acute evaluation and treatment. Outpatient workup was performed. WBC count was found to be elevated at 21.7, hemoglobin 15.0, hematocrit 45.9, platelet count 201. Neutrophils 62% with 31% bandemia. Sodium 141, potassium 4.3 , BUN 12, creatinine 0.6, glucose 153. LFTs are normal. Venous lactate 1.2, pro calcitonin 0.07, CRP 40.9 . On exam in the clinic she was noted to have some hepatomegaly and had an outpatient CT of the abdomen done which did reveal some hepatic steatosis and borderline inguinal adenopathy with inflammatory changes. Given leukocytosis with bandemia and increased redness to the left lower extremity, the Hospital services were contacted and accepted patient for direct admission for sepsis and left lower summary cellulitis. Patient will be admitted as an inpatient as is expected back did that her stay will be greater than 2 overnights. On arrival to [facility]. Patient is afebrile 98.1, she is tachycardic at 106, respiration rate 18, blood pressure 145/79, room air saturations 95%. She does report last hemoglobin A1c was in January. At that time it was 6.7. 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 Rodas at in [place]. On February 23 she started a regimen of methotrexate. Review of Systems Comprehensive ROS: completed and no additional positive findings except those as stated - Constitutional Constitutional: Present: chills, fever(s) - Gastrointestinal Gastrointestinal: Present: nausea - Integumentary/Breasts Integumentary: Present: as per HPI Integumentary Comments: Erythema and pain to left lower extremity PFSH Past Medical Hx Type 2 Diabetes Psoriasis. Cutaneous lymphoma Psoriasis Hypercholesterolemia Surgical History: Hysterectomy. Inguinal hernia repair. Unknown bladder procedure - Social History Smoking status: Current every day smoker Substance use type: does not use Alcohol intake frequency: does not drink Household members: spouse Current occupational status: employed Current residence: Apartment/Private Home Social history: Primary care provider, Dr. Kristie Boone [facility] [address]. Rodas at in [place] Medications Home Medications Medication Instructions Recorded Confirmed Type Propylene Glycol/Peg 400/Pf 1 drop BOTH EYES DAILY PRN #0 02/25/15 03/24/17 History [Systane 0.3-0.4% Eye Drops] Triamcinolone 0.25% Cream 15G 1 applic TOP DAILY PRN #0 02/25/15 03/24/17 History [Kenalog] Atorvastatin [Lipitor] 1 tab PO HS 03/24/17 03/24/17 History Citalopram Hydrobromide [Celexa] 20 mg PO DAILY 03/24/17 03/24/17 History Empagliflozin [Jardiance] 10 mg PO DAILY 03/24/17 03/24/17 History Folic Acid [Folate] 1 tab PO DAILY 03/24/17 03/24/17 History METHOTREXATE 2.5mg TAB 4 tab PO Q7D 03/24/17 03/24/17 History [Methotrexate] Allergies Allergy/AdvReac Type Severity Reaction Status Date / Time No Known Allergies Allergy Unverified 03/24/17 17:46 Exam Vital Signs: Temperature 98.1 F 03/24/17 17:28 Pulse Rate 106 H 03/24/17 17:28 Respiratory Rate 18 03/24/17 17:28 Blood Pressure 145/79 H 03/24/17 17:28 Pulse Oximetry 95 03/24/17 17:28 Height/Weight/BMI: Height 1.68 m Weight 111.5 kg Body Mass Index 39.6 - Constitutional Present: no acute distress, well nourished, well developed - Routine HEENT Exam Eye: Present: EOMI, PERRL ENT: Present: mucous membranes moist, dentition normal - Routine Neck Exam Present: full ROM - Routine Respiratory Exam Present: CTA bilaterally. Absent: wheezes - Routine Cardiovascular Exam Present: RRR. Absent: murmur - Routine Abdominal Exam Present: soft, normoactive bowel sounds, non distended. Absent: tenderness - Routine Extremities Exam Present: edema, full ROM, pulses intact, normal capillary refill - Routine Back/Spine/Pelvis Exam Back/Spine: Present: full ROM - Routine Skin Exam Present: intact, erythema (anterior and posterior of left lower extremity erythema with trace edema), dry, warm - Routine Neurological Exam Present: alert, oriented X3, CN II-XII intact - Routine Psychiatric Exam Present: normal affect, normal thought process Assessment and Plan (1) Sepsis affecting skin Current visit: Yes Status: Acute (2) Cellulitis and abscess of leg, except foot Current visit: Yes Status: Acute (3) Psoriasis Current visit: Yes Status: Chronic (4) 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 Abdullahi for sepsis, left lower extremity cellulitis qSOFA sepsis score- is negative however, clinically she appears to have sepsis present on admission- known infection of left lower cellulitis with tachycardia , leukocytosis and bandemia Obtain Blood cultures on admission. She did receive 1 gm of Rocephin at clinic. Will continue with Clindamycin for antimicrobial coverage of cellulitis. MRSA PCR screen ordered and pending, if positive, may need to have further coverage Giving swelling and pain as well as erythema of the left lower extremity. Will obtain a venous Doppler to rule out acute thrombus. Place patient on Lovenox 40 milligrams subcutaneous daily for DVT prophylaxis. Monitor Accu-Cheks, continue on current home regimen of Jardiaance. She is planning to change to metformin and glyburide once current bottle has completed. May consider adding sliding scale insulin for persistent hyperglycemia. Zofran available as needed for nausea. [place] as needed for pain control Recheck CBC and BMP tomorrow morning to follow blood counts, renal function and electrolytes She does request to be a full code and this order is written. Discuss further orders and plan of care with attending, Dr. Abdullahi. At time of discharge medical care will return to her primary care provider, Dr. Kristie Boone [facility] Hospital Course Summary Disclaimer: The visit summary below is not to be considered part of the above Progress Note. Hospital Course: 03/24/17-initial admission Admit patient to inpatient status under care of Dr. Abdullahi for sepsis, left lower extremity cellulitis qSOFA sepsis score- is negative however, clinically she appears to have sepsis present on admission- known infection of left lower cellulitis with tachycardia , leukocytosis and bandemia Obtain Blood cultures on admission. She did receive 1 gm of Rocephin at clinic. Will continue with Clindamycin for antimicrobial coverage of cellulitis. MRSA PCR screen ordered and pending, if positive, may need to have further coverage Giving swelling and pain as well as erythema of the left lower extremity. Will obtain a venous Doppler to rule out acute thrombus. Place patient on Lovenox 40 milligrams subcutaneous daily for DVT prophylaxis. Monitor Accu-Cheks, continue on current home regimen of Jardiaance. She is planning to change to metformin and glyburide once current bottle has completed. May consider adding sliding scale insulin for persistent hyperglycemia. Zofran available as needed for nausea. [place] as needed for pain control Recheck CBC and BMP tomorrow morning to follow blood counts, renal function and electrolytes She does request to be a full code and this order is written. Discuss further orders and plan of care with attending, Dr. Abdullahi. At time of discharge medical care will return to her primary care provider, Dr. Kristie Boone <Daniel Abdullahi - Last Filed: 03/24/17 19:40> History of Present Illness Date: 03/24/17 [facility] Patient Stated Medical History Diabetes Mellitus Type 2 Yes Hx Urinary Tract Infection Yes Cellulitis Yes: left lower leg-this is the second time Anesthesia Reactions Yes: nauseated Depression Yes Exam Vital Signs: Temperature 98.1 F 03/24/17 17:28 Pulse Rate 106 H 03/24/17 17:28 Respiratory Rate 18 03/24/17 17:28 Blood Pressure 145/79 H 03/24/17 17:28 Pulse Oximetry 95 03/24/17 17:28 Height/Weight/BMI: Height 1.68 m Weight 111.5 kg Body Mass Index 39.6 Assessment and Plan (1) Sepsis affecting skin Current visit: Yes Status: Acute (2) Cellulitis and abscess of leg, except foot Current visit: Yes Status: Acute (3) Psoriasis Current visit: Yes Status: Chronic (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 Chart reviewed. Case discussed with Dr Boone and my KNOWLEDGE MANAGEMENT CONSULTANT. Care plan developed with my supervision; agree with above. Noticed discomfort to her left leg while in the shower this morning. Wasn't hurting when woke up. No injury or trauma to her leg recently. Discomfort persistent-worse with walking/moving. Not sore to touch. As day went, started to feel rough - tired/weak, heart racing, nausea, febrile. Seen in Dr Boone's clinic. Had excellent workup. Lab did reveal leukocytosis with shift. Lactate not elevated, but patient tachycardic. Erythema of left lower ext from foot to patient's knee. Adenopathy of left inguinal area seen on CT. Concern for Sepsis raised by Dr Boone so she urgently notified the hospitalist service for admission. Lungs: clear, no distress on RA CV: tachy, regular AB: soft nt/nd BS decreased EXT: erythema on anterior aspect of left leg, warm but not tender Plan: Inpatient admission to [facility] for treatment of sepsis secondary to cellulitis -anticipate greater than 2 midnights of care needed. IVF-1L bolus given due to nausea and tachycardia - will continue at 75cc/hr for hydration. Clindamycin for skin coverage. Hold metformin due to CT and sepsis. Lovenox for DVT prevention; will check sono to exclude DVT. Monitor sugars. Zofran prn nausea. Control pain. Monitor BMP and CBC due to sepsis and medication use. - Time spent with patient greater than 35 minutes Hospital Course Summary Disclaimer: The visit summary below is not to be considered part of the above Progress Note.
[2017-03-24] MEDS: ENOXAPARIN 40 MG/0.4 ML INJECTION SQ SCH (18:25)
[2017-03-24] MEDS: CLINDAMYCIN PB 600 MG/50 ML BAG IV SCH (18:54)
[2017-03-24] MEDS: HYDROCODONE/APAP 7.5 MG/325 MG TABLET PO PRN (20:04)
[2017-03-24] MEDS ORDERED: NS FLUSH BAG 500ml IV PRN (21:41)
[2017-03-24] MEDS: ATORVASTATIN 40 MG TABLET PO SCH (22:02)
[2017-03-25] MEDS: SALINE FLUSH 10ml SYRINGE IV PRN ×2 (00:41→06:05)
[2017-03-25] MEDS: CLINDAMYCIN PB 600 MG/50 ML BAG IV SCH ×5 (00:42→23:30)
[2017-03-25] MEDS ORDERED: GLYBURIDE 2.5 MG TABLET PO SCH (08:00)
--- NOTE | 2017-03-25 08:11 | Ultrasound Report ---
Indication: LLE Erythema, R/O DVT PROCEDURE: US venous doppler LE LT: Encounter: Initial Comparison: None Technique: Color Doppler duplex and grayscale sonographic imaging of the left lower extremity was performed. Findings: There is no evidence for acute deep venous thrombosis in the left thigh. Specifically, serial graded compression was performed from the inguinal ligament to the popliteal bifurcation, on the left thigh, demonstrating appropriate compressibility of the deep venous system. In addition, color and pulsed Doppler demonstrate appropriate spontaneous flow, variation with respiration, and augmentation with calf compression. At the ankle, normal flow is identified in the posterior tibial veins; these vessels are also normal in caliber. Impression: No evidence of acute DVT in the left lower limb. There is a preliminary report by virtual radiologic. .
[2017-03-25] MEDS: CITALOPRAM 20 MG TABLET PO SCH (08:35)
[2017-03-25] MEDS: EMPAGLIFLOZIN 10 MG TABLET PO SCH (08:35)
[2017-03-25] MEDS: FOLIC ACID 1 MG TABLET PO SCH (08:35)
[2017-03-25] MEDS: ENOXAPARIN 40 MG/0.4 ML INJECTION SQ SCH (08:36)
--- NOTE | 2017-03-25 15:06 | Progress Note ---
<Robyn Dumont V - Last Filed: 03/25/17 15:01> Subjective: Rafy is seen today in follow up today. She reports that she is somewhat fatigued today, although overall feels that her cellulitis is improved. The area of erythema has decreased overnight. However, she continues to have pain to the lower extremity. Reports did have some nausea earlier this morning, however, that has resolved. Patient is afebrile. Vital signs remained normal. Leukocytosis improved, white count today 13.8. Objective Vital signs: Temperature 98.4 F 03/25/17 13:17 Pulse Rate 82 03/25/17 13:17 Respiratory Rate 16 03/25/17 13:17 Blood Pressure 114/69 03/25/17 13:17 Pulse Oximetry 93 03/25/17 13:17 Height/Weight/BMI: Height 1.68 m Weight 111.6 kg Body Mass Index 39.6 - Constitutional Present: no acute distress, well nourished, well developed - Routine HEENT Exam Eye: Present: EOMI ENT: Present: mucous membranes moist, dentition normal - Routine Respiratory Exam Present: CTA bilaterally. Absent: wheezes - Routine Cardiovascular Exam Present: RRR, S1, S2. Absent: murmur - Routine Abdominal Exam Present: soft, normoactive bowel sounds, non distended. Absent: tenderness - Routine Extremities Exam Present: normal capillary refill - Routine Skin Exam Present: erythema (lower ext), dry, warm - Routine Neurological Exam Present: alert, oriented X3, CN II-XII intact - Routine Lymphatic Exam Lymphatic: Absent: adenopathy - Routine Psychiatric Exam Present: normal affect Results - Labs CBC & Chem 7: 03/25/17 04:23 03/25/17 04:23 Microbiology Results: Microbiology 03/24/17 19:29 Peripheral/Iv Start Blood Culture - Preliminary Culture Initiated - Results Pending 03/24/17 19:32 Peripheral/Iv Start Blood Culture - Preliminary Culture Initiated - Results Pending Assessment and Plan (1) Sepsis affecting skin Current visit: Yes Status: Acute (2) Cellulitis and abscess of leg, except foot Current visit: Yes Status: Acute (3) Psoriasis Current visit: Yes Status: Chronic (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 Preliminary blood cultures remain negative at this time. Continue on clindamycin IV time for antimicrobial coverage. Leukocytosis improving, white count today 13.8. Venous Doppler of left lower extremity is negative for acute DVT. Will continue on Lovenox for DVT prophylaxis Patient continues to require pain medication, continue [place]. Overall blood sugars appear to be well controlled, home metformin on hold Sepsis Assessment - Evaluation Sepsis screening result: Sepsis Risk Hospital Course Summary Disclaimer: The visit summary below is not to be considered part of the above Progress Note. Hospital Course: 03/24/17-initial admission Admit patient to inpatient status under care of Dr. Abdullahi for sepsis, left lower extremity cellulitis qSOFA sepsis score- is negative however, clinically she appears to have sepsis present on admission- known infection of left lower cellulitis with tachycardia , leukocytosis and bandemia Obtain Blood cultures on admission. She did receive 1 gm of Rocephin at clinic. Will continue with Clindamycin for antimicrobial coverage of cellulitis. MRSA PCR screen ordered and pending, if positive, may need to have further coverage Giving swelling and pain as well as erythema of the left lower extremity. Will obtain a venous Doppler to rule out acute thrombus. Place patient on Lovenox 40 milligrams subcutaneous daily for DVT prophylaxis. Monitor Accu-Cheks, continue on current home regimen of Jardiaance. She is planning to change to metformin and glyburide once current bottle has completed. May consider adding sliding scale insulin for persistent hyperglycemia. Zofran available as needed for nausea. [place] as needed for pain control Recheck CBC and BMP tomorrow morning to follow blood counts, renal function and electrolytes She does request to be a full code and this order is written. Discuss further orders and plan of care with attending, Dr. Abdullahi. At time of discharge medical care will return to her primary care provider, Dr. Kristie Boone 03/25/17 Plan Overall lower extremity erythema appears to be improving on current regimen. Preliminary blood cultures remain negative at this time. Continue on clindamycin IV time for antimicrobial coverage. Leukocytosis improving, white count today 13.8. Venous Doppler of left lower extremity is negative for acute DVT. Will continue on Lovenox for DVT prophylaxis Patient continues to require pain medication, continue [place]. Overall blood sugars appear to be well controlled, home metformin on hold <Daniel Abdullahi - Last Filed: 03/25/17 16:01> Objective Vital signs: Temperature 98.1 F 03/25/17 15:27 Pulse Rate 78 03/25/17 15:27 Respiratory Rate 16 03/25/17 15:27 Blood Pressure 120/73 03/25/17 15:27 Pulse Oximetry 92 03/25/17 15:27 Height/Weight/BMI: Height 1.68 m Weight 111.6 kg Body Mass Index 39.6 Results - Labs CBC & Chem 7: 03/25/17 04:23 03/25/17 04:23 Microbiology Results: Microbiology 03/24/17 19:29 Peripheral/Iv Start Blood Culture - Preliminary Culture Initiated - Results Pending 03/24/17 19:32 Peripheral/Iv Start Blood Culture - Preliminary Culture Initiated - Results Pending Assessment and Plan (1) Sepsis affecting skin Current visit: Yes Status: Acute (2) Cellulitis and abscess of leg, except foot Current visit: Yes Status: Acute (3) Psoriasis Current visit: Yes Status: Chronic (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 Chart reviewed. Case discussed with my APNR. Care plan developed with my supervision; agree with above. Doing much better today. Not feeling as washed out and tired as yesterday. Had slight nausea before breakfast this morning, but has since resolved. Eating well. Notes less pain and discomfort to left left. No f/c. Breathing well. No chest pain or pressure. Dustin abdominal pain or bloating. Lung: clear bilaterally CV: regular AB: soft nt/nd +BS EXT: erythema to left lower ext decreasing. MSE: awake, alert appropriate Plan: Continue with clindamycin for coverage-clinically and biochemically improving. Sugars stable - hold metformin due to resolving sepsis and CT. Continue Lovenox for DVT prevention. Continue with supportive care. Hospital Course Summary Disclaimer: The visit summary below is not to be considered part of the above Progress Note.
[2017-03-25 20:06] VITALS: RESP 18
[2017-03-25] MEDS: ATORVASTATIN 40 MG TABLET PO SCH (22:22)
[2017-03-25] MEDS: HYDROCODONE/APAP 7.5 MG/325 MG TABLET PO PRN (22:22)
[2017-03-26] MEDS: CLINDAMYCIN PB 600 MG/50 ML BAG IV SCH ×2 (06:16→12:01)
[2017-03-26] MEDS: HYDROCODONE/APAP 7.5 MG/325 MG TABLET PO PRN (06:17)
[2017-03-26 08:11] VITALS: BP 111/75; PULSE 67; TEMP 97.8; O2SAT 94
[2017-03-26] MEDS: CITALOPRAM 20 MG TABLET PO SCH (09:01)
[2017-03-26] MEDS: FOLIC ACID 1 MG TABLET PO SCH (09:02)
[2017-03-26] MEDS: ENOXAPARIN 40 MG/0.4 ML INJECTION SQ SCH (09:02)
[2017-03-26] MEDS: EMPAGLIFLOZIN 10 MG TABLET PO SCH (09:02)
--- NOTE | 2017-03-26 11:29 | Discharge Instructions ---
Discharge Plan - Med Rec/Dispo Referrals/Follow Up: Kristie Boone MD [Family Provider] - (Please schedule follow up with Dr Boone for 1 week) Prescriptions: New Acetaminophen [Tylenol] 650 mg PO Q5H PRN tablet PRN Reason: Discomfort Hydrocodone/APAP 7.5/325 [[place] 7.5/325] 1 tab PO Q4H PRN #30 tablet PRN Reason: Pain Clindamycin [Cleocin] 300 mg PO TID #30 cap Continue METHOTREXATE 2.5mg TAB [Methotrexate] 4 tab PO Q7D Folic Acid [Folate] 1 tab PO DAILY Citalopram Hydrobromide [Celexa] 20 mg PO DAILY Empagliflozin [Jardiance] 10 mg PO DAILY Triamcinolone 0.25% Cream 15G [Kenalog] 1 applic TOP DAILY PRN #0 PRN Reason: Rash Propylene Glycol/Peg 400/Pf [Systane 0.3-0.4% Eye Drops] 1 drop BOTH EYES DAILY PRN #0 PRN Reason: Dry Eyes Atorvastatin [Lipitor] 1 tab PO HS Discharge Instructions/Outpatient Orders: Final Provider Discharge Instructions Location: Determined By Patient - Disposition 01 Discharged Home, Self-Care
--- NOTE | 2017-03-26 11:49 | Discharge Summary ---
Discharge Information Date of admission: 03/24/17 17:49 <Daniel Abdullahi - 03/26/17 12:28> 03/24/17 17:49 <Robyn Dumont V 03/26/17 11:49> Anticipated date of discharge: 03/26/17 <Robyn Dumont V 03/26/17 11:49> Attending Physician: Daniel Abdullahi MD <Daniel Abdullahi - 03/26/17 12:28> Daniel Abdullahi MD <Robyn Dumont V 03/26/17 11:49> Primary care physician: Kristie Boone MD <Daniel Abdullahi - 03/26/17 12:28> Kristie Boone MD <Robyn Dumont V 03/26/17 11:49> Consults: None <Robyn Dumont V 03/26/17 11:49> - Discharge Diagnosis Discharge Diagnosis: Sepsis-improved Cellulitis-improved Diabetes Psoriasis Cutaneous lymphoma Immunocompromised <Robyn Dumont V 03/26/17 11:49> - Procedures Procedures: None <Robyn Dumont V 03/26/17 11:49> - Laboratory Labs: 03/26/17 04:28 03/26/17 04:28 <Daniel Abdullahi - 03/26/17 12:28> 03/26/17 04:28 03/26/17 04:28 <Robyn Dumnot V 03/26/17 11:49> - Microbiology Microbiology 03/24/17 19:29 Peripheral/Iv Start Blood Culture - Preliminary No Growth After 1 Day 03/24/17 19:32 Peripheral/Iv Start Blood Culture - Preliminary No Growth After 1 Day <Daniel Abdullahi - 03/26/17 12:28> Microbiology 03/24/17 19:29 Peripheral/Iv Start Blood Culture - Preliminary No Growth After 1 Day 03/24/17 19:32 Peripheral/Iv Start Blood Culture - Preliminary No Growth After 1 Day <Robyn Dumont V 03/26/17 11:49> - Radiology Radiology: Venous Doppler of lower extremity negative for acute DVT <Robyn Dumont V 03/26/17 11:49> - Pathology None <Robyn Dumont V - 03/26/17 11:49> History of Present Illness HPI: Rafy is a pleasant 56-year-old female who awoke feeling normal this morning. She went to get in the shower several hours later and felt some burning in the left lower extremity. Once out of the shower she noticed increased erythema to the left lower leg. As the day went on, she developed nausea and dizziness. Due to these symptoms, she presented to her primary care provider, Dr. Boone for further acute evaluation and treatment. Outpatient workup was performed. WBC count was found to be elevated at 21.7, hemoglobin 15.0, hematocrit 45.9, platelet count 201. Neutrophils 62% with 31% bandemia. Sodium 141, potassium 4.3 , BUN 12, creatinine 0.6, glucose 153. LFTs are normal. Venous lactate 1.2, pro calcitonin 0.07, CRP 40.9 . On exam in the clinic she was noted to have some hepatomegaly and had an outpatient CT of the abdomen done which did reveal some hepatic steatosis and borderline inguinal adenopathy with inflammatory changes. Given leukocytosis with bandemia and increased redness to the left lower extremity, the Hospital services were contacted and accepted patient for direct admission for sepsis and left lower summary cellulitis. Patient will be admitted as an inpatient as is expected back did that her stay will be greater than 2 overnights. On arrival to [facility]. Patient is afebrile 98.1, she is tachycardic at 106, respiration rate 18, blood pressure 145/79, room air saturations 95%. She does report last hemoglobin A1c was in January. At that time it was 6.7. 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 Rodas at in [place]. On February 23 she started a regimen of methotrexate. <TimRobyn V - 03/26/17 11:49> Hospital Course This is a general summary of the patient's hospital course. For more details refer to the complete medical record. <Daniel Abdullahi - 03/26/17 12:28> This is a general summary of the patient's hospital course. For more details refer to the complete medical record. <Robyn Dumont V - 03/26/17 11:49> Hospital course: 03/24/17-initial admission Admit patient to inpatient status under care of Dr. Abdullahi for sepsis, left lower extremity cellulitis qSOFA sepsis score- is negative however, clinically she appears to have sepsis present on admission- known infection of left lower cellulitis with tachycardia , leukocytosis and bandemia Obtain Blood cultures on admission. She did receive 1 gm of Rocephin at clinic. Will continue with Clindamycin for antimicrobial coverage of cellulitis. MRSA PCR screen ordered and pending, if positive, may need to have further coverage Giving swelling and pain as well as erythema of the left lower extremity. Will obtain a venous Doppler to rule out acute thrombus. Place patient on Lovenox 40 milligrams subcutaneous daily for DVT prophylaxis. Monitor Accu-Cheks, continue on current home regimen of Jardiaance. She is planning to change to metformin and glyburide once current bottle has completed. May consider adding sliding scale insulin for persistent hyperglycemia. Zofran available as needed for nausea. [place] as needed for pain control Recheck CBC and BMP tomorrow morning to follow blood counts, renal function and electrolytes She does request to be a full code and this order is written. Discuss further orders and plan of care with attending, Dr. Abdullahi. At time of discharge medical care will return to her primary care provider, Dr. Kristie Boone 03/25/17 Plan Overall lower extremity erythema appears to be improving on current regimen. Preliminary blood cultures remain negative at this time. Continue on clindamycin IV time for antimicrobial coverage. Leukocytosis improving, white count today 13.8. Venous Doppler of left lower extremity is negative for acute DVT. Will continue on Lovenox for DVT prophylaxis Patient continues to require pain medication, continue [place]. Overall blood sugars appear to be well controlled, home metformin on hold 03/26/17-discharge Rafy is seen and examined today. Overall she is feeling much better and erythema of the left lower extremity has greatly improved. Pain has improved and is being treated with [place]. We will continue patient on clindamycin 300 milligrams 3 times a day for 10 additional days. Would like patient to stay off work for the next 3 days. She is to see her primary care provider, Dr. Boone next week. Otherwise, resume normal home medications <Robyn Dumont V - 03/26/17 11:49> Time spent with patient: greater than 35 minutes <Robyn Dumont Koffi - 03/26/17 11:49> DVT Prophylaxis: Lovenox <Robny Dumont Koffi - 03/26/17 11:49> Discharge Plan - Med Rec/Dispo Referrals/Follow Up: Kristie Boone MD [Family Provider] - (Please schedule follow up with Dr Boone for 1 week) <Daniel Abdullahi - 03/26/17 12:28> Truven Instructions: <Daniel Abdullahi - 03/26/17 12:28> Prescriptions: New Acetaminophen [Tylenol] 650 mg PO Q5H PRN tablet PRN Reason: Discomfort Hydrocodone/APAP 7.5/325 [[place] 7.5/325] 1 tab PO Q4H PRN #30 tablet PRN Reason: Pain Clindamycin [Cleocin] 300 mg PO TID #30 cap Continue METHOTREXATE 2.5mg TAB [Methotrexate] 4 tab PO Q7D Folic Acid [Folate] 1 tab PO DAILY Citalopram Hydrobromide [Celexa] 20 mg PO DAILY Empagliflozin [Jardiance] 10 mg PO DAILY Triamcinolone 0.25% Cream 15G [Kenalog] 1 applic TOP DAILY PRN #0 PRN Reason: Rash Propylene Glycol/Peg 400/Pf [Systane 0.3-0.4% Eye Drops] 1 drop BOTH EYES DAILY PRN #0 PRN Reason: Dry Eyes Atorvastatin [Lipitor] 1 tab PO HS <Daniel Abdullahi - 03/26/17 12:28> Discharge Instructions/Outpatient Orders: Final Provider Discharge Instructions Location: Determined By Patient <Daniel Abdullahi - 03/26/17 12:28> - Disposition 01 Discharged Home, Self-Care <Daniel Abdullahi - 03/26/17 12:28> - Attestation Attestation Narrative: 03/26/17 12:24 I have independently interviewed and examined patient prior to discharge. Chart reviewed. Case discussed with my [employer]. Care plan developed with my supervision; agree with above. Doing well today. No f/c. Pain to left leg stable. Eating well-no nausea or vomiting. Breathing well. Feels ready for discharge. Lungs: clear bilaterally, no distress CV: regular AB: soft nt/nd +BS EXT: erythema to left lower ext with decrease MSE: awake alert appropriate Plan: Will discharge to home. Continue clindamycin for skin coverage - pt to monitor for nausea and diarrhea with clindamycin. Encouraged yogurt for bowel protection. F/U with Dr Boone in 1 week. See orders for details. <Daniel Abdullahi - 03/26/17 12:27>
== END 2017-03-26 13:05 | disposition home or self-care (01) | DRG 872 ==
LOC: MED
PROVIDERS: ADMIT Hospitalist; ATTEND Hospitalist